=== PATIENT | female | born 1940 | race Caucasian/White ===

== ENCOUNTER 2019-01-27 12:51 | Emergency (ER) | payer OTHER ==
[~2019-01-27] VITALS: Ht 157.5 cm; Wt 99.8 kg
[2019-01-27 13:18] LABS: URINE BILIRUBIN NEGATIVE (Negative); URINE BLOOD 3+ (Negative); URINE CLARITY CLOUDY; URINE COLOR YELLOW; URINE GLUCOSE-RANDOM* NEGATIVE (Negative); URINE KETONES NEGATIVE (Negative); URINE LEUKOCYTES-REFLEX TRACE (Negative); URINE NITRITE-REFLEX NEGATIVE (Negative); URINE PROTEIN (DIPSTICK) 1+ (Negative); URINE UROBILINOGEN 0.2 E.U./dl (0.2-1.0)
[2019-01-27 13:36] LABS: BACTERIA-REFLEX 1-9 Few /HPF (None Seen); CASTS None Seen /LPF (None Seen); CRYSTALS None Seen /LPF (None Seen); SQUAMOUS >10 Many /LPF (0-3); URINE WBC-REFLEX 0-5 Rare /HPF (0-5)
[2019-01-27 13:37] LABS: ABSOLUTE NEUTROPHILS 5.8 thou/uL (1.4-8.2); BASOPHILS 0.9 % (0.0-2.0); EOSINOPHILS 1.1 % (0.0-3.0); HEMATOCRIT 46.3 % (37.0-47.0); HEMOGLOBIN 15.5 gm/dL (12.0-15.0); LYMPHOCYTES 18.9 % (24.0-44.0); MCHC 33.5 g/dL (28.0-37.0); MCV 92.7 fL (80.0-100.0); MONOCYTES 6.4 % (1.0-8.0); PLATELET COUNT 301 thou/uL (150-400); POLYS 72.7 % (36.0-66.0); RDW 13.7 % (10.5-14.5)
[2019-01-27 13:52] LABS: CALCIUM 9.7 mg/dL (8.5-10.1); CREATININE 1.2 mg/dL (0.6-1.0); POTASSIUM 4.2 mmol/L (3.5-5.1)
[2019-01-27] MEDS ORDERED: AMLODIPINE BESY10 MG PO (14:44)
[2019-01-27] MEDS ORDERED: METOPROLOL SUC200 MG PO (14:44)
[2019-01-27] MEDS ORDERED: SYNTHROID137 MC1 PO (14:44)
[2019-01-27 16:00] VITALS: BP 145/83
[2019-01-27] MEDS ORDERED: KEFLEX500 M1 PO (16:03)
== END 2019-01-27 16:00 | disposition home or self-care (01) ==
LOC: ER 12:51
PROVIDERS: Nurse Practitioner Family
DX: N95.0 Postmenopausal bleeding (principal); N85.8 Other specified noninflammatory disorders of uterus; I10 Essential (primary) hypertension; Z90.89 Acquired absence of other organs